=== PATIENT | female | born 1985 | race Caucasian/White ===

== ENCOUNTER 2017-09-27 14:19 | Emergency (ER) | payer OTHER, SELFPAY ==
[2017-09-27 14:23] VITALS: BP 124/87; PULSE 103; RESP 20; TEMP 36.5; O2SAT 97; BMI 23.1
[2017-09-27] MEDS: 0.9% Normal Saline 1,000 ML 1000 ML IV (15:00)
--- NOTE | 2017-09-27 15:09 | ED.DCSUM_ITS ---
- ER Visit Summary Date of Service: 09/27/17 Chief Complaint: Lightheadedness, near syncope History of Present Illness: The patient is a 31 F presents to the emergency department with heat exposure. Patient was working outdoors at [facility]. She was in a vest and pants. She was pushing heavy crates. She is doing this right now and a half. She began to get lightheaded and diaphoretic. She felt as if she is going to pass out. She went inside and sat down and her symptoms worsened. She did not lose consciousness. On squad arrival, she had an oral temperature of 100. IV was established and she was started on IV fluids. By the time she arrived here, she was feeling improved. The patient is on no medications. She denies any other exposures. She denies any drug or alcohol use. Physical Examination: Vital signs reviewed General: Well-nourished, well-developed Head: Normocephalic, atraumatic Eyes: Pupils equal and reactive, extraocular muscles intact Neck, supple, no lymphadenopathy Heart: Regular rate and rhythm Respiratory: No distress, clear bilaterally Abdomen: Soft, nontender, nondistended, no peritoneal signs Back: Nontender Extremities: Nontender, no edema, no cords Skin: Normal color no rash Neuro: Alert and oriented, no focal or lateralizing deficits Test Results: [] Emergency Department Course and Treatment: The patient presents with heat illness. She is afebrile here. I did obtain labs are unremarkable. The patient was hydrated and given Tylenol. She is feeling improved. She was counseled on avoiding heat, continue aggressive hydration, and rest. The patient will be discharged home. Treatment Plan: [] Disposition: Discharge Impression: 1. Heat exhaustion This note was generated with [employer] software. It may contain incorrect words, spelling, and punctuation that were not noted in review of the chart prior to signing ED Disposition - Plan for ED Patient: Chief Complaint: General Illness Instructions: ED Exhaustion Heat Referrals: NOT,DEFINED [NON-STAFF] -
[2017-09-27] MEDS: Acetaminophen 500 MG Tablet 1000 MG PO (15:48)
[2017-09-27 16:27] LABS: Anion Gap 4 (5-15); BUN 12 mg/dL (7-18); BUN/Creat Ratio 15.2 RATIO (10-20); Calcium,Total 8.6 mg/dL (8.5-10.1); Chloride 109 mmol/L (98-107); Creatinine, Serum 0.79 mg/dL (0.55-1.02); EST Glomerular Filtration Rate 91 mL/min (>60); Est Glom Filt Rate - Afr Amer 110 mL/min (>60); Estimated Creatinine Clearance 98.36 ml/min; Glucose 80 mg/dL (74-106); Potassium 3.8 mmol/L (3.5-5.1); Sodium Level 139 mmol/L (136-145)
[2017-09-27 16:35] LABS: Pregnancy, Serum, hCG Quali. NEGATIVE Negative (0-9 Nonpreg)
[2017-09-27 16:38] VITALS: BP 122/76; PULSE 78; RESP 20; O2SAT 94
== END 2017-09-27 16:53 | disposition home or self-care (01) ==
PROVIDERS: Emergency Provider Emergency Medicine
DX: T67.5XXA Heat exhaustion, unspecified, initial encounter (principal); X30.XXXA Exposure to excessive natural heat, initial encounter; Y93.9 Activity, unspecified; Y92.9 Unspecified place or not applicable
CPT/HCPCS: 80048; 84703; 96360; 99285; J7030; A4216